=== PATIENT | female | born 1960 | race Caucasian/White ===

== ENCOUNTER 2016-12-20 07:04 | Observation (INO) | payer MEDICAID ==
[2016-12-20] MEDS ORDERED: MAGNESIUM SULFATE 2 GRAM 2 GM/50 ML BAG IV STA (07:16)
[2016-12-20] MEDS ORDERED: MULTIVITAMIN 10 ML in SODIUM CHLORIDE 0.9% 1,000 ML IV STA (07:16)
[2016-12-20] MEDS ORDERED: THIAMINE INJ 100 MG, FOLIC ACID INJ 1 MG in SODIUM CHLORIDE 0.9% 100ML 100 ML IV STA (07:16)
--- NOTE | 2016-12-20 07:31 | ED Physician Documentation ---
PD HPI SYNCOPE - Stated complaint Stated Complaint: LIGHTHEAD/BLOOD IN STOOL - Chief complaint Chief Complaint: Neuro - History obtained from History obtained from: Patient, Family - History of Present Illness Witnessed: Unwitnessed Timing - onset: Enter time (0200), Last night Duration: Seconds Preceding symptoms: Vision changes, Diaphoresis, Nausea / vomiting, Light headed Associated symptoms: Other (dark stool with blood) Contributing factors: Other (has been taking some ibuprofen for back pain this past week) Injury occurred: None Similar symptoms before: Diagnosis (has had peptic ulcer long ago never any bleeding.) Recently seen: Not recently seen - Additional information Additional information: 56-year-old female with scant medical history has been taking some ibuprofen for back pain this past week and last night about 2 AM she got up to go to the bathroom and felt faint became diaphoretic and laid back down on her bed. She did not have complete syncope and did not injure herself. She did note black and bloody stool this morning first at 3am and last at 530am and a total of 3 bowel movements. She feels lightheaded and dizzy. She is brought to the hospital by her niece. She admits to consuming about 3 drinks per night with her father. Review of Systems Constitutional: denies: Fever Eyes: denies: Decreased vision Ears: denies: Ear pain Nose: denies: Congestion Throat: denies: Sore throat Cardiac: denies: Chest pain / pressure, Palpitations Respiratory: denies: Dyspnea, Cough GI: reports: Abdominal Pain, Nausea, Bloody / black stool. denies: Vomiting, Constipation, Diarrhea : denies: Dysuria, Frequency Skin: denies: Rash Musculoskeletal: denies: Neck pain, Back pain, Extremity pain Neurologic: reports: Near syncope. denies: Generalized weakness, Focal weakness , Numbness, Syncope, Headache, Head injury Psychiatric: denies: Depressed PD PAST MEDICAL HISTORY - Past Medical History Past Medical History: No - Past Surgical History Past Surgical History: No - Present Medications Home Medications: Ambulatory Orders Medication Instructions Recorded Confirmed No Known Home Medications [No 12/20/16 12/20/16 Known Home Medications] - Allergies Allergies/Adverse Reactions: Allergies Allergy/AdvReac Type Severity Reaction Status Date / Time No Known Drug Allergies Allergy Verified 12/20/16 07:15 - Social History Does the pt smoke?: No Smoking Status: Never smoker Does the pt drink ETOH?: Yes Does the pt have substance abuse?: No - POLST Patient has POLST: No PD ED PE NORMAL - Vitals Vital signs reviewed: Yes (Tachycardic and hypertensive) - General General: No acute distress, Well developed/nourished - HEENT HEENT: Atraumatic, PERRL, EOMI - Neck Neck: Supple, no meningeal sign, No bony TTP - Cardiac Cardiac: No murmur, Other (Tachycardic) - Respiratory Respiratory: No respiratory distress - Abdomen Abdomen: Soft, Non tender - Back Back: No CVA TTP, No spinal TTP - Derm Derm: Normal color, Warm and dry, No rash - Extremities Extremities: No deformity, No edema - Neuro Neuro: No motor deficit, No sensory deficit Eye Opening: Spontaneous Motor: Obeys Commands Verbal: Oriented GCS Score: 15 - Psych Psych: Normal mood Results - Vitals Vitals: Vital Signs - 24 hr 12/20/16 12/20/16 07:12 07:58 Temperature 36.2 C L Heart Rate 125 H 104 H Respiratory 17 16 Rate Blood Pressure 170/99 H 145/84 H O2 Saturation 99 99 Oxygen O2 Source Room air - EKG (time done) 0710 Rhythm: Sinus tachycardia (113), LAE [place]: LAD Compare to prior EKG: Old EKG unavailable Computer interpretation: Agree with computer - Labs Labs: Laboratory Tests 12/20/16 12/20/16 12/20/16 07:25 07:25 07:25 WBC 10.6 RBC 3.64 L Hgb 12.4 Hct 36.4 L MCV 99.9 H MCH 34.0 H MCHC 34.0 RDW 13.2 Plt Count 332 MPV 7.7 L Neut # 9.2 H Lymph # 1.0 L [place] # 0.4 Eos # 0.0 Baso # 0.0 Absolute Nucleated RBC 0.00 Nucleated RBC % 0.0 PT 11.1 INR 1.0 Sodium 135 Potassium 4.4 Chloride 104 Carbon Dioxide 20 L Anion Gap 11.0 BUN 44 H Creatinine 0.9 Estimated GFR (MDRD) 64 L Glucose 136 H Calcium 9.6 Total Bilirubin 0.4 AST 29 ALT 23 Alkaline Phosphatase 72 Troponin I Total Protein 7.9 Albumin 4.0 Globulin 3.9 Albumin/Globulin Ratio 1.0 Lipase 22 Ethyl Alcohol < 5.0 Blood Type Antibody Screen 12/20/16 12/20/16 07:25 07:25 WBC RBC Hgb Hct MCV MCH MCHC RDW Plt Count MPV Neut # Lymph # [place] # Eos # Baso # Absolute Nucleated RBC Nucleated RBC % PT INR Sodium Potassium Chloride Carbon Dioxide Anion Gap BUN Creatinine Estimated GFR (MDRD) Glucose Calcium Total Bilirubin AST ALT Alkaline Phosphatase Troponin I < 0.04 Total Protein Albumin Globulin Albumin/Globulin Ratio Lipase Ethyl Alcohol Blood Type A POSITIVE Antibody Screen NEGATIVE Procedures - IVC sono (time) 0724 Bedside IVC sono: IVC measures (cm) (0.98), Low CVP PD MEDICAL DECISION MAKING - ED course Complexity details: reviewed old records, reviewed results, re-evaluated patient , considered differential, d/w patient ED course: 56 y/o female with a GI bleed likely related to ibuprofen is tachy and hypertensive on arrival. 2 iv lines are established and she is given IV banana bag and protonix IV. She does not have more melena in the ED. Dr. Anthony is consulted for admission. Departure - Departure Disposition: ED Place in Observation Clinical Impression: GI bleed due to NSAIDs Condition: Fair Discharge Date/Time: 12/20/16 09:00
[2016-12-20] MEDS ORDERED: PANTOPRAZOLE 40 MG VIAL IVP STA (07:34)
[2016-12-20 07:40] LABS: BASOPHILS % (AUTO) 0.4 %; EOSINOPHILS % (AUTO) 0.1 %; HCT - HEMATOCRIT 36.4 % (37.0-47.0); HGB - HEMOGLOBIN 12.4 g/dL (12.0-16.0); LYMPHOCYTES % (AUTO) 9.5 %; MEAN CORPUSCULAR VOLUME 99.9 fL (81.0-99.0); MEAN PLATELET VOLUME 7.7 fL (7.9-10.8); MONOCYTES # (AUTO) 0.4 10^3/uL (0.0-1.0); MONOCYTES % (AUTO) 3.4 %; NEUTROPHILS # (AUTO) 9.2 10^3/uL (1.5-6.6); NEUTROPHILS % (AUTO) 86.6 %; RED BLOOD COUNT 3.64 10^6/uL (4.20-5.40); RED CELL DISTRIBUTION WIDTH 13.2 % (12.0-15.0); UNCORRECTED WHITE BLOOD COUNT 10.6 x10^3/uL; WHITE BLOOD COUNT 10.6 x10^3/uL (4.8-10.8)
[2016-12-20 07:47] LABS: PT - PROTHROMBIN TIME 11.1 secs (9.9-12.6)
[2016-12-20 07:52] LABS: BILIRUBIN,TOTAL 0.4 mg/dL (0.2-1.0); BUN - BLOOD UREA NITROGEN 44 mg/dL (6-20); CALCIUM 9.6 mg/dL (8.5-10.3); CARBON DIOXIDE - CO2 20 mmol/L (21-32); CHLORIDE 104 mmol/L (101-111); CREATININE 0.9 mg/dL (0.4-1.0); GFR - MDRD 64 (>89); GLUCOSE 136 mg/dL (70-100); LIPASE 22 U/L (22-51); POTASSIUM 4.4 mmol/L (3.5-5.0); SODIUM 135 mmol/L (135-145); TOTAL PROTEIN 7.9 g/dL (6.7-8.2)
[2016-12-20] MEDS ORDERED: MAGNESIUM SULFATE 2 GRAM 2 GM/50 ML BAG IV ONE (07:59)
[2016-12-20] MEDS ORDERED: ACETAMINOPHEN 325 MG TABLET PO PRN (08:27)
[2016-12-20] MEDS ORDERED: TEMAZEPAM 15 MG CAPSULE PO PRN (08:27)
[2016-12-20] MEDS ORDERED: ONDANSETRON 4 MG/2 ML VIAL IVP PRN (08:27)
[2016-12-20] MEDS: DEXTROSE 5%-0.45% NACL 1,000 ML IV SCH ×2 (09:28→18:48)
[2016-12-20] MEDS: POLYETHYLENE GLYCOL 3350 17 GM PACKET PO SCH (09:29)
[2016-12-20] MEDS: SODIUM CHLORIDE FLUSH 0.9% 10 ML SYRINGE IVP SCH ×2 (09:29→21:48)
--- NOTE | 2016-12-20 10:08 | CONSULTATION NOTE ---
DATE OF CONSULTATION: 12/20/2016 00:00:00 REASON FOR CONSULTATION: Melena. HISTORY OF PRESENT ILLNESS: This is a 56-year-old female who presented to the emergency department this morning after having an episode of near syncope and melenic stools last night. She states that she began having GERD symptoms around midnight, got up to take some Tums, and then went to the bathroom. She then had an episode of black colored diarrhea. She had 2 subsequent episodes later this morning. She then came to the emergency department complaining of dizziness and lightheadedness. Upon evaluation in the emergency department, she was noted to be hypertensive and tachycardic. Her hemoglobin was noted to be 12.4. Upon my evaluation of the patient, she states that she has had GERD in the past and used to take Prilosec, but she does not consistently take anything anymore. She does not have very frequent symptoms of GERD and when she does she takes Tums. She has never had an EGD in the past. She has been taking ibuprofen and Excedrin for arthritic pain. She has been taking anywhere between 600 mg q.6 -8h. for the past 2 weeks. She also drinks 3 glasses of gin and tonics per night. She has never had any symptoms of alcohol withdrawal. She has never had any hemoptysis. She has never had a colonoscopy. She denies any family history of colon cancer. She denies any previous change in bowel habits or previous bloody stools in the past. PAST MEDICAL HISTORY: None. PAST SURGICAL HISTORY: None. HOME MEDICATIONS: None. ALLERGIES TO MEDICATIONS: NO KNOWN DRUG ALLERGIES. PHYSICAL EXAMINATION VITAL SIGNS: Temperature is 36.2. Heart rate is 104, blood pressure is 145/84, respiratory rate is 16, O2 saturation is 99% on room air. GENERAL: The patient is awake, alert, oriented x3, in no acute distress. She is slightly obese. CARDIOVASCULAR: Sinus tachycardia. CHEST: Clear to auscultation bilaterally. No rhonchi or wheezing. ABDOMEN: Soft, nondistended and nontender to palpation. There is no guarding and no rigidity. EXTREMITIES: Well perfused. LABORATORY VALUES: White count 10.6, hemoglobin 12.4, hematocrit 36.4, platelets 332. INR 1.0. Sodium 135, potassium 4.4, chloride 104, bicarbonate 20 , BUN 44, creatinine 0.9. ASSESSMENT: This is a 56-year-old female who presents with melenic stools. PLAN: The differential diagnosis includes peptic ulcer disease, gastritis, duodenitis, esophagitis, and very low in the differential includes esophageal varices. The patient should be placed on IV fluid resuscitation and IV Nexium drip. We will plan to take care her for esophagogastroduodenoscopy this afternoon. The procedure was explained to the patient in detail including the potential risks involved including, but not limited to exacerbation of bleeding and perforation of viscus. She understands all the above and agrees to proceed with the procedure. I also indicated to the patient that if her EGD is normal, she may require an inpatient colonoscopy. If her EGD does demonstrate signs compatible with her symptoms, she will require an outpatient colonoscopy for screening purposes. JOB #: [id number] EXT JOB #:[id number] [email or web address]
--- NOTE | 2016-12-20 12:24 | HISTORY & PHYSICAL EXAMINATION ---
Chief Complaint - Chief Complaint Chief Complaint: melena, dizziness GI Bleed Admit Template - Admitted From Admitted from: ED - History Obtained From Records Reviewed: RN notes reviewed, Old records reviewed History obtained from: Patient Exam limitations: No limitations - History of Present Illness Severity at the worst: reports: Moderate Bleeding quality: reports: Black, tarry stool Context-bleeding started w/: reports: Bowel movement, ETOH intake, Other (NSAID use.) Timing: reports: Abrupt onset Duration: reports: Minutes: (40), Days: Improved with: reports: Nothing Worsened by: reports: Nothing Associated symptoms: reports: Feeling faint / dizzy, General Weakness HPI Comment/Other: Sola Narvaez is a 56 year old female with a history of right ear hearing loss in childhood, obesity, GERD and situational anxiety due to increased stress. She admits to having "about 3 GIN/toxic drinks per night" because her grandfather who lives with her also drinks. She denies any specific injury, but has been having low back discomfort for about a week and states that she takes her Ibuprofen on an empty stomach 3 tablets at a time. She woke up at about 0200 this morning feeling like she needed to move her bowels. She had 3 black,tarry semi-formed stools in a row. Soon after that she began to feel weak with profound dizziness which persisted and led to her coming to the ED. PMH/PSH - Past Medical History Cardiovascular: positive: None Respiratory: positive: None, COPD Neuro: positive: None Endocrine/Autoimmune: positive: None GI: positive: GERD, Esophageal varices (history of peptic ulcers at age 13 years.) : positive: None HEENT: positive: None, Chronic hearing loss (right ear) Psych: positive: Anxiety (related to stress) Musculoskeletal: positive: Chronic back pain Derm: positive: None MRSA Hx?: No Social & Family Hx - Living Situation Living Arrangement: At home Living Situation: With family (a caregiver to elderly father.) - Social History Does the pt smoke?: No Smoking Status: Never smoker Does the pt drink ETOH?: Yes ETOH Use: Other (GIN & tonic x3/night.) Does the pt have substance abuse?: No - POLST Patient has POLST: No POLST Status: DNR - Family History Family History: Mother: Alive and Well, CVA/TIA, Father: Alive and Well, Hypertension, Sister: Alive and Well Meds/Allgy - Home Medications Home Medications: Ambulatory Orders Medication Instructions Recorded Confirmed No Known Home Medications [No 12/20/16 12/20/16 Known Home Medications] - Allergies Allergies/Adverse Reactions: Allergies Allergy/AdvReac Type Severity Reaction Status Date / Time No Known Drug Allergies Allergy Verified 12/20/16 07:15 Review of Systems - Constitutional Constitutional: reports: Poor appetite (not a healthy diet lately due to increased stress.) - Eyes Eyes: reports: Corrective lenses (non-prescription.) - Ears, Nose & Throat Ears, Nose & Throat: reports: Hearing loss (right ear 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 Exam - Vital Signs Reviewed Vital Signs: Yes Vital Signs: Vital Signs x48h Temp Pulse Resp BP Pulse Ox 12/20/16 09:30 145/80 H 12/20/16 09:00 36.7 C 106 H 16 140/78 H 100 - Physical Exam General Appearance: positive: No acute distress, Alert Eyes Bilateral: positive: Normal inspection, PERRL ENT: positive: ENT inspection nml, Pharynx nml, No signs of dehydration Neck: positive: Nml inspection, Thyroid nml, No JVD, Trachea midline Respiratory: positive: Chest non-tender, No respiratory distress, Breath sounds nml Cardiovascular: positive: Regular rate & rhythm, Systolic murmur Peripheral Pulses: positive: 2+ Abdomen: positive: Non-tender, No organomegaly, Nml bowel sounds, Other ( rounded.) Rectal: positive: Black stool Back: positive: Nml inspection Skin: positive: Color nml, No rash, Warm, Dry Extremities: positive: Non-tender, Full ROM, Nml appearance, No pedal edema Neurologic/Psychiatric: positive: Oriented x3, CN's nml (2-12), Motor nml, Sensation nml, Mood/affect nml Reflexes: Bicep (R): 4+, Bicep (L): 4+, Ankle (R): 4+, Ankle (L): 4+ Results - Lab Results Lab results reviewed: Yes Fish Bones: 12/20/16 07:25 12/20/16 07:25 - Diagnostic Imaging Results Diagnostic Imaging Results: positive: Prelim report reviewed - EKG Results EKG Interpreted Independently: Yes ARRA - Anticipated LOS Anticipated Stay Length: Less than 2 midnights - AMI - Statin at Admit Aspirin Prescribed on Admit: No Not Ordered - Medical Reason: Contraindicated - Stroke - Rehab Assessment Rehab services assessment to be ordered?: No Not Ordered - Medical Reason: Contraindicated - DVT/VTE - Prophylaxis VTE/DVT Device ordered at admit?: Yes VTE/DVT Prophylaxis med ordered at admit?: No Not Ordered - Medical Reason: Contraindicated Impression/Plan - Problem List Problem List: Melena- Patient admits to having at least 3 episodes of black tarry semi-formed stool very early this morning followed by profound dizziness and lightheadedness. She said she saw some "older looking blood mixed into it". Plan: Surgery consulted for possible colonoscopy/EGD. dizziness-Patient does not generally have dizziness, but noted to be dizzy after her abrupt onset of melena stool. She notes that she does not have a very good stomach for blood. She denies "passing out". Plan: IVF both pre and post procedure to replace fluids. NSAID induced gastritis- Patient has been taking Ibuprofen 600-1200mg per day, many times on an empty stomach for back pain/back aches. She denies previous use of chronic NSAID use. Plan: Avoid further use of NSAIDs and wait for general surgery recommendations- testing is pending. alcohol use- Patient admits to drinking 3 GIN/tonic mixed drinks every night, but denies abuse. The room had a odor of previous alcohol use during her exam. Patient's alcohol level in the ED upon admit was + for alcohol. Plan: Give information on cessation if EGD/colonoscopy results point to ETOH as the likely cause for melena. Find additional community resources. GERD- Patient admits to intermittent "heartburn" symptoms that are usually relieved with OTH tums. She states that she was previously on OTC zantac, but has not needed them for a while. Plan: Decide appropriate symptom control based on EGD/colonoscopy findings. PPI verses H2 liseth therapy. Obesity-Patient has a BMI of 33.9. She admits to an unhealthy diet lately. Plan: Possible dietary consult. DVT prophylaxis- SCD devices, blood thinning medications contraindicated due to suspected GI bleed.
[2016-12-20 14:23] LABS: BILIRUBIN,URINE NEGATIVE (NEGATIVE); PH,URINE 5.5 PH (5.0-7.5)
[2016-12-20 14:29] LABS: UA w/ MICROSCOPIC CHARGE YES
[2016-12-20 14:35] LABS: UR CULTURE IF IND NOT INDICATED
[2016-12-20] MEDS: SODIUM CHLORIDE FLUSH 0.9% 10 ML SYRINGE IVP PRN (15:56)
[2016-12-20] MEDS: PANTOPRAZOLE 40 MG VIAL IVP SCH (15:56)
[2016-12-20] MEDS ORDERED: LACTATED RINGERS 1,000 ML IV ONE (17:25)
[2016-12-20] MEDS ORDERED: LIDOCAINE-MPF 2% 5 ML VIAL IM ONE (17:59)
[2016-12-20] MEDS ORDERED: PROPOFOL 200 MG/20 ML VIAL IVP ONE (17:59)
[2016-12-21] MEDS: DEXTROSE 5%-0.45% NACL 1,000 ML IV SCH (04:09)
[2016-12-21 05:53] LABS: ALBUMIN/GLOBULIN RATIO 1.2 (1.0-2.2); BILIRUBIN,TOTAL 0.4 mg/dL (0.2-1.0); CALCIUM 8.2 mg/dL (8.5-10.3); CREATININE 0.9 mg/dL (0.4-1.0); MAGNESIUM 1.8 mg/dL (1.7-2.8); PHOSPHORUS 3.4 mg/dL (2.5-4.6); POTASSIUM 3.8 mmol/L (3.5-5.0); TOTAL PROTEIN 5.8 g/dL (6.7-8.2)
[2016-12-21] MEDS: SODIUM CHLORIDE FLUSH 0.9% 10 ML SYRINGE IVP SCH (07:02)
[2016-12-21] MEDS: PANTOPRAZOLE 40 MG VIAL IVP SCH (07:05)
[2016-12-21] MEDS: SODIUM CHLORIDE FLUSH 0.9% 10 ML SYRINGE IVP PRN (07:05)
[2016-12-21] MEDS: POLYETHYLENE GLYCOL 3350 17 GM PACKET PO SCH (07:44)
[2016-12-21 09:06] LABS: BASOPHILS % (AUTO) 0.4 %; EOSINOPHILS # (AUTO) 0.3 10^3/uL (0.0-0.7); HCT - HEMATOCRIT 28.3 % (37.0-47.0); HGB - HEMOGLOBIN 9.6 g/dL (12.0-16.0); LYMPHOCYTES # (AUTO) 1.8 10^3/uL (1.5-3.5); LYMPHOCYTES % (AUTO) 25.6 %; MEAN CORPUSCULAR HEMOGLOBIN 34.2 pg (27.0-31.0); MEAN CORPUSCULAR HGB CONC 33.9 g/dL (32.0-36.0); MEAN PLATELET VOLUME 7.9 fL (7.9-10.8); MONOCYTES # (AUTO) 0.6 10^3/uL (0.0-1.0); MONOCYTES % (AUTO) 8.7 %; NEUTROPHILS # (AUTO) 4.4 10^3/uL (1.5-6.6); NEUTROPHILS % (AUTO) 61.3 %; RED CELL DISTRIBUTION WIDTH 13.3 % (12.0-15.0); UNCORRECTED WHITE BLOOD COUNT 7.1 x10^3/uL; WHITE BLOOD COUNT 7.1 x10^3/uL (4.8-10.8)
[2016-12-21 12:02] LABS: HCT - HEMATOCRIT 27.7 % (37.0-47.0); HGB - HEMOGLOBIN 9.4 g/dL (12.0-16.0)
--- NOTE | 2016-12-21 12:45 | Discharge Plan ---
Discharge Plan Disposition: 01 Home, Self Care Condition: Stable Prescriptions: Esomeprazole Magnesium [Nexium] 40 mg PO DAILY #7 capsule. Sucralfate [Carafate] 1 gm PO QID #28 tablet Diet: Regular Activity Restrictions: Activity as Tolerated Shower Restrictions: No Driving Restrictions: No Additional Instructions or Follow Up instructions: May follow up PCP in four days, have blood test including CBC in four days. May follow up Dr. Hutchinson in 8 weeks. Patient is advised, should her symptoms return or worsen, call 911 or present ER. Follow-Up Care: [facility] - Medical No Smoking: If you smoke, Please STOP! Call for help.
--- NOTE | 2016-12-21 12:56 | DISCHARGE SUMMARY ---
Discharge Summary Admit Date: 12/20/16 Discharge Date: 12/21/16 Discharging Provider: CAST Primary Care Provider: pt say she did not have PCP,but she say she will see her family PCP in 4day Code Status: Do Not Attempt Resuscitation Condition at Discharge: Stable Discharge Disposition: 01 Home, Self Care Discharge Facility Name: home - DIAGNOSES Admission Diagnoses: Melena- dizziness- NSAID-induced gastric ulcer alcohol abuse GERD- Obesity- Discharge Diagnoses with Status of Each Condition: Melena- resolved. Pt did not have more Melena at hospital dizziness- resolved NSAID-induced gastric ulcer pt took lots of Motrin at home. EGD found pt did have multiple ulcer at stomach. pt was prescribed Protonix and Carafat alcohol abuse pt is advised to cut down and quit alcohol GERD- stable, continue to be treated with prescribed meds, and follow up PCP Obesity- advised to loss of weight - HPI History of Present Illness: please refer from Ms. wheeler's HPI on 12/20/16 as the following: Sola Narvaez is a 56 year old female with a history of right ear hearing loss in childhood, obesity, GERD and situational anxiety due to increased stress. She admits to having "about 3 GIN/toxic drinks per night" because her grandfather who lives with her also drinks. She denies any specific injury, but has been having low back discomfort for about a week and states that she takes her Ibuprofen on an empty stomach 3 tablets at a time. She woke up at about 0200 this morning feeling like she needed to move her bowels. She had 3 black,tarry semi-formed stools in a row. Soon after that she began to feel weak with profound dizziness which persisted and led to her coming to the ED. - HOSPITAL COURSE Hospital Course: pt was admitted for Melena three time at home. pt report she continue alcohol drunk, and took lots of Motrin. PT was consulted with surgeon, Dr. Freitas. Pt had EGD procedure. The EGD did find pt has ulcer at stomach. Pt was treated with Protonix and Carafat. Pt did not have more Melena at hospital. I called about pt's discharge plan. state pt can be discharge at this day, pt did not have acute bleeding on EGD, pt's HGB may continue at lower side after Melena for about two days, and HGB may go up, and pt is safe to be discharged at this day. Pt was advised to have colonoscopy after 8 weeks from D/ C at Dr. Hutchinson's office. Pt was advised to avoid alcohol and stop Motrin. - ALLERGIES Allergies/Adverse Reactions: Allergies Allergy/AdvReac Type Severity Reaction Status Date / Time No Known Drug Allergies Allergy Verified 12/20/16 07:15 - MEDICATIONS Home Medications: Ambulatory Orders Medication Instructions Recorded Confirmed Esomeprazole Magnesium [Nexium] 40 mg PO DAILY #7 capsule. 12/21/16 Sucralfate [Carafate] 1 gm PO QID #28 tablet 12/21/16 - PHYSICAL EXAM AT DISCHARGE General Appearance: positive: No acute distress, Alert. negative: Lethargic Eyes Bilateral: positive: Normal inspection, PERRL, EOMI, No lid inflammation, Conjunctivae nml ENT: positive: ENT inspection nml, Pharynx nml, No signs of dehydration. negative: Purulent nasal drainage, Pharyngeal erythema, Oral lesions Neck: positive: Nml inspection, Thyroid nml, No JVD, Trachea midline. negative : Thyromegaly, Lymphadenopathy (R), Lymphadenopathy (L), Stiff neck, Carotid bruit, Swelling/bruising, Tracheal deviation Respiratory: positive: Chest non-tender, No respiratory distress, Breath sounds nml. negative: Wheezes, Rales, Rhonchi Cardiovascular: positive: Regular rate & rhythm, No murmur, No gallop. negative : Irregularly irregular, Extrasystoles, Tachycardia, Bradycardia, Systolic murmur, Diastolic murmur Peripheral Pulses: positive: 2+ Abdomen: positive: Non-tender, No organomegaly, Nml bowel sounds, No distention. negative: Tenderness, Guarding, Rebound Back: positive: Nml inspection. negative: CVA tenderness (R), CVA tenderness (L ) Skin: positive: Color nml, No rash, Warm, Dry. negative: Cyanosis, Diaphoresis , Pallor Extremities: positive: Non-tender, Full ROM, Nml appearance. negative: Pedal edema, Joint swelling, Rosalie's sign/cords Neurologic/Psychiatric: positive: Oriented x3, Motor nml, Sensation nml, Mood/ affect nml. negative: Sensory loss, Facial droop, Slurred/abnml speech, Depressed mood/affect - LABS Result Diagrams: 12/21/16 11:50 12/21/16 05:14 - FOLLOW UP Follow Up: pt is advised to follow up PCP in one week, have blood work including CBC in one week. pt is advised, should symptom return or worsen, call 911 or go to the ER. Pt was advised to have colonoscopy after 8 weeks from D/C at Dr. Hutchinson's office. Pt was advised to avoid alcohol and stop Motrin right now. Pt is prescribed protonix and Carafat for D/C
[2016-12-21] MEDS ORDERED: SUCRALFATE 1 GM/10 ML UDC PO SCH (13:00)
[2016-12-21 13:27] VITALS: BP 134/75
== END 2016-12-21 13:50 | disposition home or self-care (01) ==
LOC: ED 07:04 → OBS 08:27
PROVIDERS: ADMIT Nurse Practitioner; ATTEND Nurse Practitioner Gerontology
PROC: 0DB78ZX Excision of Stomach, Pylorus, Via Natural or Artificial Opening Endoscopic, Diagnostic (ICD-10-PCS; principal; 2016-12-20 15:30)
DX: K25.4 Chronic or unspecified gastric ulcer with hemorrhage (principal); T39.315A Adverse effect of propionic acid derivatives, initial encounter; Y92.009 Unspecified place in unspecified non-institutional (private) residence as the place of occurrence of the external cause; F10.10 Alcohol abuse, uncomplicated; K21.9 Gastro-esophageal reflux disease without esophagitis; E66.9 Obesity, unspecified; F41.9 Anxiety disorder, unspecified; G89.29 Other chronic pain; M54.9 Dorsalgia, unspecified; Z68.33 Body mass index [BMI] 33.0-33.9, adult; Z71.41 Alcohol abuse counseling and surveillance of alcoholic; Z66 Do not resuscitate; Z63.9 Problem related to primary support group, unspecified
CPT/HCPCS: 36415; 43239; 80053; 80320; 81001; 83690; 83735; 84100; 84484; 85014; 85018; 85025; 85610; 86850; 86900; 86901; 88305; 93005; 96361; 96365; 96368; 96375; 96376; 99283; 99285; A9270; G0378; J3411; J7120; 81003; 87086

== ENCOUNTER 2016-12-24 06:35 | Emergency (ER) | payer MEDICAID ==
[2016-12-24 06:44] VITALS: BP 152/81
[2016-12-24 07:02] LABS: BASOPHILS % (AUTO) 0.6 %; EOSINOPHILS # (AUTO) 0.3 10^3/uL (0.0-0.7); EOSINOPHILS % (AUTO) 5.2 %; HCT - HEMATOCRIT 32.6 % (37.0-47.0); HGB - HEMOGLOBIN 11.2 g/dL (12.0-16.0); LYMPHOCYTES # (AUTO) 1.3 10^3/uL (1.5-3.5); LYMPHOCYTES % (AUTO) 20.4 %; MEAN CORPUSCULAR HEMOGLOBIN 34.3 pg (27.0-31.0); MEAN CORPUSCULAR HGB CONC 34.3 g/dL (32.0-36.0); MEAN CORPUSCULAR VOLUME 99.9 fL (81.0-99.0); MEAN PLATELET VOLUME 6.9 fL (7.9-10.8); MONOCYTES # (AUTO) 0.5 10^3/uL (0.0-1.0); MONOCYTES % (AUTO) 8.2 %; NEUTROPHILS % (AUTO) 65.6 %; RED BLOOD COUNT 3.26 10^6/uL (4.20-5.40); RED CELL DISTRIBUTION WIDTH 13.1 % (12.0-15.0); UNCORRECTED WHITE BLOOD COUNT 6.2 x10^3/uL; WHITE BLOOD COUNT 6.2 x10^3/uL (4.8-10.8)
--- NOTE | 2016-12-24 07:24 | ED Physician Documentation ---
History of Present Illness - Stated complaint Stated Complaint: FOLLOW UP - Chief complaint Chief Complaint: General - History obtained from History obtained from: Patient (Pt states that she was told by her GI provider ( who evaluated her for a GI bleed) to have a repeat CBC in 4 days after discharge. The pt states that she did not have a PCM to go to to have this blood work completed so se came to the ER. she has no complaints) Review of Systems Ten Systems: 10 systems reviewed and negative PD PAST MEDICAL HISTORY - Past Medical History Past Medical History: Yes Cardiovascular: None Respiratory: None, COPD Neuro: None Endocrine/Autoimmune: None GI: GERD, Esophageal varices : None HEENT: None, Chronic hearing loss Psych: Anxiety Musculoskeletal: Chronic back pain Derm: None - Past Surgical History Past Surgical History: No - Present Medications Home Medications: Ambulatory Orders Medication Instructions Recorded Confirmed Esomeprazole Magnesium [Nexium] 40 mg PO DAILY #7 capsule. 12/21/16 12/24/16 Sucralfate [Carafate] 1 gm PO QID #28 tablet 12/21/16 12/24/16 Esomeprazole Magnesium [Nexium] 40 mg PO DAILY #30 cap 12/24/16 Sucralfate [Carafate] 1 gm PO QID #120 tablet 12/24/16 - Allergies Allergies/Adverse Reactions: Allergies Allergy/AdvReac Type Severity Reaction Status Date / Time No Known Drug Allergies Allergy Verified 12/24/16 06:44 - Social History Does the pt smoke?: No Smoking Status: Never smoker Does the pt drink ETOH?: Yes Does the pt have substance abuse?: No - POLST Patient has POLST: No POLST Status: DNR PD ED PE NORMAL - General General: Alert and oriented X 3 - HEENT HEENT: Atraumatic, Moist mucous membranes - Respiratory Respiratory: No respiratory distress - Derm Derm: Normal color, Warm and dry, No rash - Extremities Extremities: No deformity - Neuro Neuro: Alert and oriented X 3, Normal speech Eye Opening: Spontaneous Motor: Obeys Commands Verbal: Oriented GCS Score: 15 - Psych Psych: Normal mood, Normal affect Results - Vitals Vitals: Vital Signs - 24 hr 12/24/16 06:39 Temperature 37.1 C Heart Rate 99 Respiratory 18 Rate Blood Pressure 152/81 H O2 Saturation 100 Oxygen O2 Source Room air - Labs Labs: Laboratory Tests 12/24/16 06:53 WBC 6.2 RBC 3.26 L Hgb 11.2 L Hct 32.6 L MCV 99.9 H MCH 34.3 H MCHC 34.3 RDW 13.1 Plt Count 370 MPV 6.9 L Neut # 4.0 Lymph # 1.3 L Hardy # 0.5 Eos # 0.3 Baso # 0.0 Absolute Nucleated RBC 0.00 Nucleated RBC % 0.0 PD MEDICAL DECISION MAKING - ED course Complexity details: d/w patient (Pt CBC better today c/W her discharge CBC. she has no complatins. no bleeding. She has plans to obtain a PCM for follow up. Will refill her nexium and carafate. Pt given return instructions. ) Departure - Departure Disposition: 01 Home, Self Care Clinical Impression: Anemia Qualifiers: Anemia type: unspecified type Qualified Code(s): D64.9 - Anemia, unspecified Condition: Good Instructions: Anemia Follow-Up: primary,care provider [Other] Prescriptions: Esomeprazole Magnesium [Nexium] 40 mg PO DAILY #30 cap Sucralfate [Carafate] 1 gm PO QID #120 tablet Comments: Make contact with your primary care provider for a follow up and return to the ER for any new or worsening symptoms.
== END 2016-12-24 07:34 | disposition home or self-care (01) ==
LOC: ED 06:35
DX: D64.9 Anemia, unspecified (principal); J44.9 Chronic obstructive pulmonary disease, unspecified; K21.9 Gastro-esophageal reflux disease without esophagitis; I85.00 Esophageal varices without bleeding
CPT/HCPCS: 36415; 85025; 99283

== ENCOUNTER 2017-03-10 11:16 | Day surgery (SDC) | payer MEDICAID ==
[2017-03-10] MEDS ORDERED: LACTATED RINGERS 1,000 ML IV ONE (11:26)
[2017-03-10] MEDS ORDERED: MIDAZOLAM 2 MG/2 ML VIAL IVP ONE (12:00)
[2017-03-10] MEDS ORDERED: fentaNYL 100 MCG/2 ML VIAL IVP ONE (12:00)
[2017-03-10 12:39] VITALS: BP 118/72
== END 2017-03-10 11:17 | disposition home or self-care (01) ==
LOC: SDS 11:16
PROVIDERS: ATTEND Surgery
PROC: 0DBH8ZX Excision of Cecum, Via Natural or Artificial Opening Endoscopic, Diagnostic (ICD-10-PCS; principal; 2017-03-10 12:30)
DX: D12.0 Benign neoplasm of cecum (principal); K64.8 Other hemorrhoids; K21.9 Gastro-esophageal reflux disease without esophagitis
CPT/HCPCS: 45380; J7120

== ENCOUNTER 2020-01-24 17:15 | Outpatient (CLI) | payer MEDICAID | END 2020-01-24 17:16 | disposition home or self-care (01) | LOC: COV 17:15 | PROVIDERS: ATTEND Family Medicine | DX: Z20.828 Contact with and (suspected) exposure to other viral communicable diseases (principal) ==